=== PATIENT | female | born 1990 | race Caucasian/White ===

== ENCOUNTER 2019-05-27 17:37 | Emergency (ER) | payer OTHER ==
[~2019-05-27] VITALS: Ht 152.4 cm; Wt 54.4 kg
[2019-05-27] MEDS ORDERED: STRATTERA100 MG (18:02)
[2019-05-27] MEDS ORDERED: CYMBALTA60 MG (18:02)
[2019-05-27] MEDS ORDERED: ATIVAN2 MG (18:03)
[2019-05-27] MEDS ORDERED: TRAZODONE HCL100 MG (18:03)
[2019-05-27] MEDS ORDERED: TERAZOSIN HCL10 MG (18:03)
[2019-05-27] MEDS ORDERED: LITHIUM CARBON450 MG (18:03)
[2019-05-27] MEDS ORDERED: ZANTAC150 M3 (18:04)
[2019-05-27] MEDS ORDERED: ZOFRAN4 MG (18:04)
[2019-05-27] MEDS ORDERED: ALLEGRA ALLERGY60 MG (18:04)
[2019-05-27] MEDS ORDERED: FLONASE16 GM (18:04)
== END 2019-05-27 20:18 | disposition home or self-care (01) ==
LOC: ER 17:37
DX: S70.362A Insect bite (nonvenomous), left thigh, initial encounter (principal); L08.89 Other specified local infections of the skin and subcutaneous tissue; W57.XXXA Bitten or stung by nonvenomous insect and other nonvenomous arthropods, initial encounter; Y93.89 Activity, other specified; Y92.89 Other specified places as the place of occurrence of the external cause; Y99.8 Other external cause status